=== PATIENT | male | born 1980 | race Two or more races ===

== ENCOUNTER 2023-05-09 20:59 | Emergency (ER) | payer OTHER ==
[~2023-05-09] VITALS: Ht 167.6 cm; Wt 81.6 kg
[2023-05-10] MEDS ORDERED: CEPHALEXIN500 MG PO (01:06)
== END 2023-05-10 01:12 ==
LOC: ER 20:59
DX: S61.216A Laceration without foreign body of right little finger without damage to nail, initial encounter (principal); W26.8XXA Contact with other sharp object(s), not elsewhere classified, initial encounter; Y93.9 Activity, unspecified; Y92.9 Unspecified place or not applicable; Y99.0 Civilian activity done for income or pay